=== PATIENT | male | born 1995 | race Caucasian/White ===

== ENCOUNTER 2022-05-26 16:41 | Emergency (ER) | payer OTHER ==
[~2022-05-26] VITALS: Ht 167.6 cm; Wt 77.5 kg
[2022-05-26 17:59] LABS: RSV AMPLIFICATION NEGATIVE (NEGATIVE)
[2022-05-26] MEDS ORDERED: ALBUTEROL 90 MCG/ACT 8GM HFA INHALER INH ONE (22:00)
[2022-05-26] MEDS ORDERED: HOME MED LIST COMPLETE! XX SCH (22:10)
[2022-05-26] MEDS ORDERED: ZITHTAB PO (22:51)
[2022-05-26] MEDS ORDERED: VENTAER INH (22:51)
[2022-05-26] MEDS ORDERED: BENZ200C70 PO (22:51)
[2022-05-26 22:59] VITALS: BP 142/66
[2022-05-26] MEDS ORDERED: BENZONATATE 100MG CAPSULE PO ONE (23:00)
== END 2022-05-26 23:12 | disposition home or self-care (01) ==
LOC: M ED 16:41 → CANBEDREQ 22:04 → M ED 23:12
DX: R05.9 Cough, unspecified (principal); Z79.51 Long term (current) use of inhaled steroids